=== PATIENT | male | born 1970 | race Caucasian/White ===

== ENCOUNTER 2025-01-19 15:42 | Emergency (ER) | payer MEDICAID ==
[~2025-01-19] VITALS: Ht 157.5 cm; Wt 91.0 kg
[2025-01-19 15:44] VITALS: O2SAT 96
[2025-01-19] MEDS: SODIUM CHLORIDE 0.9% 1,000 ML IV ONE (16:32)
[2025-01-19] MEDS: ONDANSETRON HCL 4MG/2ML INJ IV ONE (16:32)
[2025-01-19] MEDS: MECLIZINE 25MG TABLET PO ONE (16:41)
[2025-01-19 16:44] LABS: BASOPHILS % 0.6 % (0.0-2.0); EOSINOPHILS % 0.6 % (0.0-5.0); HEMATOCRIT. 47.9 % (42.0-52.0); HEMOGLOBIN. 16.1 g/dL (14.0-18.0); LYMPHOCYTES % 13.5 % (20.0-50.0); MEAN PLATELET VOLUME 9.9 fl (7.4-10.4); MONOCYTES % 5.4 % (2.0-8.0); NEUTROPHILS % 79.9 % (40.0-76.0); PLATELET 144 x1000/uL (130-400); RED BLOOD CELL COUNT 5.41 mill/uL (4.7-6.1); RED CELL DISTRIBUTION WIDTH 13.1 % (11.6-14.6)
[2025-01-19 16:59] LABS: INR 1.1
[2025-01-19 17:00] LABS: CREATININE 0.9 mg/dL (0.6-1.3)
[2025-01-19 17:01] LABS: UREA NITROGEN BLOOD 11 mg/dL (9-23)
[2025-01-19 17:02] LABS: ASPARTATE AMINOTRANSFERASE 37 IU/L (<34); BILIRUBIN DIRECT 0.2 mg/dL (<=3.0); TROPONIN I HIGH SENSITIVITY < 4 ng/L (3.0-53)
[2025-01-19 17:03] LABS: BILIRUBIN TOTAL 0.5 mg/dL (0.1-1.0); PROTEIN TOTAL 7.9 g/dL (6.0-8.3)
[2025-01-19] MEDS ORDERED: MECL-299 MT (18:58)
[2025-01-19 19:19] VITALS: BP 132/76; PULSE 82; RESP 18; TEMP 37; O2SAT 100
[2025-01-19 19:53] LABS: TROPONIN I HIGH SENSITIVITY < 4 ng/L (3.0-53)
== END 2025-01-19 20:03 | disposition home or self-care (01) ==
LOC: ER 15:42
DX: R42 Dizziness and giddiness (principal); Z79.899 Other long term (current) drug therapy
CPT/HCPCS: 80076; 80048; 80320; 83880; 83690; 85025; 85610; 84484; 36415; 71045; 70450; 93005; 96374; 99285; J8597; J2405; J7030; Z7610 ×2; A4606; G0480